=== PATIENT | male | born 1960 | race Caucasian/White ===

== ENCOUNTER 2016-12-11 19:19 | Emergency (ER) | payer BC, OTHER ==
--- NOTE | 2016-12-11 19:45 | ERPHSYRPT ---
- History of Present Illness Time Seen by Provider: 12/11/16 19:32 Historian: patient Exam Limitations: no limitations Patient Subjective Stated Complaint: PT REPORTS CHEST PAIN FOR ONE WEEK. STATES TODAY APPROX 1 HR SHUTTLE THREADER THE PAIN BECAME SEVERE AND SHARP AND RADIATED FROM THE CENTER OF HIS CHEST UP TO HIS JAW. REPORTS HX OF OR. Triage Nursing Assessment: PT IS AOX3, AMBULATORY TO COT WITH NO DIFFICULTIES, SKIN IS PWD, RESPS ARE EASY AND NONLABORED. DENIES COUGH. PT DENIES SOB OR DIAPHORESIS. RADIAL PULSES STRONG AND REGULAR. Physician History: The patient is a 56-year-old male who comes in complaining of chest pain for almost 2 weeks. He denies shortness of breath, nausea, or sweating. The pain is gone when he wakes up every morning but then begins to show up later in the morning and last all day. Today about one hour ago the pain intensified and is described as sharp and pinpoint. An hour ago the pain spread across his chest from left to right and some into his jaw. The pain now is similar to what it had been for almost 2 weeks. The pain is simply pinpoint in nature and sharp. He rates it a 3 out of 10. His past medical history significant for OR, CABG, hypertension, and cholecystectomy. He takes a full size aspirin daily which she did take today. Timing/Duration: week(s) (2) Activities at Onset: none Quality: sharpness Location: central Chest Pain Radiation: jaw Severity of Pain-Max: moderate Severity of Pain-Current: mild Modifying Factors: Improves With: nothing Associated Symptoms: denies symptoms, No nausea, No vomiting, No heartburn, No shortness of breath, No cough, No syncope, No dizziness Prior Chest Pain/Cardiac Workup: angina, cardiac cath, heart attack Nitro Today/Relief: no nitro taken today Aspirin Treatment Today: 325 mg x 1 Allergies/Adverse Reactions: No Known Drug Allergies Allergy (Unverified 11/25/14 17:15) Home Medications: Aspirin 81 gm Chew [Baby Aspirin 81 mg Chew] 81 mg PO DAILY 11/25/14 [ History] Lisinopril [Zestril] 0 mg PO DAILY 11/25/14 [History] Metoprolol Succinate 0 mg PO DAILY 11/25/14 [History] Hx Tetanus, Diphtheria Vaccination/Date Given: No Hx Influenza Vaccination/Date Given: No Hx Pneumococcal Vaccination/Date Given: No Immunizations Up to Date: Yes - Review of Systems Constitutional: No Fever, No Chills Eyes: No Symptoms Ears, Nose, & Throat: No Symptoms Respiratory: No Cough, No Dyspnea Cardiac: Chest Pain Abdominal/Gastrointestinal: No Abdominal Pain, No Nausea, No Vomiting, No Diarrhea Genitourinary Symptoms: No Dysuria Musculoskeletal: No Back Pain, No Neck Pain Skin: No Rash Neurological: No Dizziness, No Focal Weakness, No Sensory Changes Psychological: No Symptoms Endocrine: No Symptoms Hematologic/Lymphatic: No Symptoms Immunological/Allergic: No Symptoms All Other Systems: Reviewed and Negative - Past Medical History Pertinent Past Medical History: Yes Cardiac History: Coronary Artery Disease, Myocardial Infarction ([place]) GI Medical History: Gallbladder Disease - Past Surgical History Past Surgical History: Yes Cardiac: CABG Gastrointestinal: Cholecystectomy Musculoskeletal: Orthopedic Surgery - Social History Smoking Status: Current every day smoker How long have you smoked: 44 Exposure to second hand smoke: No Drug Use: none Patient Lives Alone: No - Nursing Vital Signs Pulse Rate: 86 Respiratory Rate: 20 Pain Intensity: 3 - Physical Exam General Appearance: no apparent distress, alert Eye Exam: PERRL/EOMI, eyes nml inspection Ears, Nose, Throat Exam: normal ENT inspection, moist mucous membranes Neck Exam: normal inspection, non-tender, supple, full range of motion Respiratory Exam: normal breath sounds, lungs clear, No respiratory distress Cardiovascular Exam: regular rate/rhythm, normal heart sounds Gastrointestinal/Abdomen Exam: soft, No tenderness, No mass Rectal Exam: not done Back Exam: normal inspection, No CVA tenderness, No vertebral tenderness Extremity Exam: normal inspection, normal range of motion Neurologic Exam: alert Skin Exam: normal color, warm, dry SpO2 Interpretation: normal SpO2: 96 Oxygen Delivery: Room Air - Course EKG Interpreted by Me: RATE, NORMAL AXIS, NORMAL INTERVALS, NORMAL QRS, NORMAL ST-T, Other (no change comp to EKG 11/25/14.) - Radiology Exams Chest X-ray Interpretation: Interpreted by me, Negative (COPD and CABG. No acute. Comp AP CXR 11/25/14.) Ordered Tests: Active Orders 24 hr Category Date Time Status Clinical Data Research STAT Care 12/11/16 19:49 Active EKG-ER Only STAT Care 12/11/16 19:36 Active IV Insertion STAT Care 12/11/16 19:36 Active CHEST 2 VIEWS (PA AND LAT) Stat Exams 12/11/16 19:49 Taken CBC W DIFF Stat Lab 12/11/16 19:45 Completed CMP Stat Lab 12/11/16 19:45 Completed NT PRO BNP Stat Lab 12/11/16 19:45 Completed TROPONIN Q3H Lab 12/11/16 19:45 Completed TROPONIN Q3H Lab 12/11/16 23:00 Ordered TROPONIN Q3H Lab 12/12/16 02:00 Ordered TROPONIN Q3H Lab 12/12/16 05:00 Ordered TROPONIN Q3H Lab 12/12/16 08:00 Ordered Medication Summary Discontinued Medications Generic Name Dose Route Start Last Admin Trade Name Freq PRN Reason Stop Dose Admin Al Hydrox/Mg Hydrox/Simethicone Confirm 12/11/16 19:56 Maalox Es 30 Ml Unit Dose Administered 12/11/16 19:57 Dose 30 ml .ROUTE .STK-MED ONE Belladonna Alkaloids/Phenobarbital 60 ml 12/11/16 19:50 12/11/16 20:07 Gi Cocktail 60ml (Belladonn/Phenobarb/Lidoc* PO 12/11/16 19:51 60 ml STAT ONE Administration Belladonna Alkaloids/Phenobarbital Confirm 12/11/16 19:57 Donnatol Liquid Administered 12/11/16 19:58 Dose 64.8 mg .ROUTE .STK-MED ONE Ketorolac Tromethamine 30 mg 12/11/16 19:51 12/11/16 20:06 Toradol 30 Mg Injection IV 12/11/16 19:52 30 mg STAT ONE Administration Ketorolac Tromethamine Confirm 12/11/16 19:55 Toradol 30 Mg Injection Administered 12/11/16 19:56 Dose 30 mg .ROUTE .STK-MED ONE Lidocaine HCl Confirm 12/11/16 19:56 Xylocaine Hcl Viscous * Administered 12/11/16 19:57 Dose 20 ml .ROUTE .STK-MED ONE Lab/Rad Data: Laboratory Result Diagrams 12/11/16 19:45 12/11/16 19:45 Laboratory Results 12/11/16 12/11/16 12/11/16 Range/Units 19:45 19:45 19:45 WBC 10.1 (4.0-10.5) K/mm3 RBC 5.23 (4.1-5.6) M/mm3 Hgb 15.9 (12.5-18.0) gm/dl Hct 47.2 (42-50) % MCV 90.2 (78-100) fl MCH 30.4 (26-32) pg MCHC 33.7 (32-36) g/dl RDW 14.3 H (11.5-14.0) % Plt Count 222 (150-450) K/mm3 MPV 10.1 H (6-9.5) fl Gran % 64.7 (36.0-66.0) % Lymphocytes % 23.3 L (24.0-44.0) % Monocytes % 9.8 (0.0-12.0) % Eosinophils % 2.0 (0.00-5.0) % Basophils % 0.2 (0.0-0.4) % Basophils # 0.02 (0-0.4) Sodium 145 (136-145) mEq/L Potassium 3.9 (3.5-5.1) mEq/L Chloride 108 H (98-107) mEq/L Carbon Dioxide 25.2 (21-32) mEq/L Anion Gap 15.8 H (5-15) MEQ/L BUN 13 (9-20) mg/dL Creatinine 1.11 (0.55-1.30) mg/dl Estimated GFR > 60 ML/MIN Glucose 130 H (70-110) MG/DL Calcium 8.8 (8.5-10.1) mg/dL Total Bilirubin 0.4 (0.2-1.0) mg/dL AST 21 (15-37) U/L ALT 28 (12-78) U/L Alkaline Phosphatase 76 (46-116) U/L Troponin I < 0.017 (0.000-0.056) ng/ml NT-Pro-B Natriuret Pep 25 (0-125) pg/ml Serum Total Protein 7.5 (6.4-8.2) gm/dL Albumin 3.8 (3.4-5.0) g/dL - Progress Progress: improved Air Movement: good Progress Note: 12/11/16 20:37 After a GI cocktail and Toradol 30 mg IV, the patient is now pain free and wishes to go home. Blood Culture(s) Obtained: No Antibiotics given: No Counseled pt/family regarding: lab results, diagnosis, need for follow-up, rad results - Departure Time of Disposition: 20:37 Departure Disposition: Home Clinical Impression: Non-cardiac chest pain, Chest pain Condition: Stable Critical Care Time: No Additional Instructions: You came to the emergency room with noncardiac chest pain. You were treated with a GI cocktail and Toradol. Please follow-up with your doctor in 1-2 days.
[2016-12-11] MEDS ORDERED: GI COCKTAIL 60ML (Belladonn/Phenobarb/Lidoc PO ONE (19:50)
[2016-12-11] MEDS ORDERED: TORAdol 30 mg Injection IV ONE (19:51)
[2016-12-11] MEDS ORDERED: TORAdol 30 mg Injection ONE (19:55)
[2016-12-11] MEDS ORDERED: XYLOCAINE HCl Viscous ONE (19:56)
[2016-12-11] MEDS ORDERED: MAALOX ES 30 ML UNIT DOSE ONE (19:56)
[2016-12-11 19:57] LABS: BASOPHIL % 0.2 % (0.0-0.4); Granulocytes % 64.7 % (36.0-66.0); Lymphocytes % 23.3 % (24.0-44.0); Mean Cell Volume 90.2 fl (78-100); Mean Corpuscular Hemoglobin 30.4 pg (26-32); Mean Platelet Volume 10.1 fl (6-9.5); Monocytes % 9.8 % (0.0-12.0); Platelet Count 222 K/mm3 (150-450); Red Blood Count 5.23 M/mm3 (4.1-5.6); Red Cell Distribution Width 14.3 % (11.5-14.0); White Blood Count 10.1 K/mm3 (4.0-10.5)
[2016-12-11] MEDS ORDERED: Donnatol Liquid ONE (19:57)
[2016-12-11 20:12] LABS: ALBUMIN 3.8 g/dL (3.4-5.0); ALKALINE PHOSPHATASE 76 U/L (46-116); ANION GAP 15.8 MEQ/L (5-15); BILIRUBIN,TOTAL 0.4 mg/dL (0.2-1.0); BLOOD UREA NITROGEN 13 mg/dL (9-20); CHLORIDE 108 mEq/L (98-107); Carbon Dioxide 25.2 mEq/L (21-32); Glucose 130 MG/DL (70-110); Potassium 3.9 mEq/L (3.5-5.1); SGOT/AST 21 U/L (15-37); SGPT/ALT 28 U/L (12-78); SODIUM 145 mEq/L (136-145); Total Protein 7.5 gm/dL (6.4-8.2)
[2016-12-11 20:39] VITALS: O2SAT 96
[2016-12-11 21:00] VITALS: BP 124/78; PULSE 73
--- NOTE | 2016-12-12 08:36 | XRAY ---
Indication: Chest pain. Comparison: November 25, 2014. Portable chest remains clear. Heart is not enlarged and again demonstrates previous CABG surgery. Vascularity normal. Bony thorax intact again with mild osteopenia and degenerative changes. Impression: Stable nonacute chest.
== END 2016-12-11 21:00 | disposition home or self-care (01) ==
LOC: ED 19:19
DX: R07.89 Other chest pain (principal)
CPT/HCPCS: 36000; 36415; 71020; 80053; 83880; 84484; 85025; 93005; 93041; 96374; 99284; J1885; A9270-GY

== ENCOUNTER 2021-10-08 18:50 | Observation (INO) | payer BC ==
[2021-10-08 19:35] LABS: Absolute Neutrophil Ct (ANC) 7.85 (1.4-6.9); Basophil (Absolute #) 0.03 (0-0.4); Eosinophil % 1.3 % (0.00-5.0); Eosinophil (Absolute #) 0.14 (0-0.5); Hematocrit 48.3 % (42-50); Hemoglobin 16.1 gm/dl (12.5-18.0); Lymphocyte (Absolute #) 2.17 (1.0-4.6); Lymphocytes % 19.7 % (24.0-44.0); Mean Cell Volume 91.7 fl (78-100); Mean Corpuscular Hemoglobin 30.6 pg (26-32); Mean Corpuscular Hgb Concent. 33.3 g/dl (32-36); Mean Platelet Volume 10.1 fl (7.5-11.0); Monocyte (Absolute #) 0.84 (0.0-1.3); Monocytes % 7.6 % (0.0-12.0); Neutrophil % 71.1 % (36.0-66.0); Platelet Count 230 K/mm3 (150-450); Red Blood Count 5.27 M/mm3 (4.1-5.6); Red Cell Distribution Width 14.1 % (11.5-14.0)
[2021-10-08 19:45] LABS: ALBUMIN 4.5 g/dL (3.5-5.0); ALKALINE PHOSPHATASE 95 U/L (38-126); ANION GAP 16.1 MEQ/L (5-15); BLOOD UREA NITROGEN 15 mg/dL (9-20); CHLORIDE 104 mmol/L (98-107); Calcium 9.7 mg/dL (8.4-10.2); Carbon Dioxide 23 mmol/L (22-30); Creatinine 1 1.18 mg/dL (0.66-1.25); EST GLOMERULAR FILTRATION RATE > 60.0 ML/MIN; Glucose 105 mg/dL (74-106); SGOT/AST 25 U/L (17-59); SGPT/ALT 25 U/L (0-50); SODIUM 139 mmol/L (137-145); Total Protein 7.6 g/dL (6.3-8.2)
[2021-10-08] MEDS ORDERED: BABY ASPIRIN 81 MG CHEW PO ONE (21:26)
[2021-10-08] MEDS ORDERED: NITRO-BID 2% UD PACKETS TOP ONE (21:26)
--- NOTE | 2021-10-08 21:26 | ERPHSYRPT ---
- History of Present Illness Time Seen by Provider: 10/08/21 19:00 Source: patient Exam Limitations: no limitations Patient Subjective Stated Complaint: Chest pain Triage Nursing Assessment: Patient ambulated back to ED and transferred self to bed. Patient A+O X3. Patient's skin pink, warm and dry. Patient complains of chest pain that goes through shoulder blades and into left side of neck 5/10. Patient stated the pain started yesterday, but went away. Patient states around 1600 the pain came back while he was at rest. Lungs clear a/p torie. Heart tones audible. Physician History: Patient is a 61-year-old male presents to our ED with complaints of chest pain that radiates through her chest to his back. Pain radiates to the area between his shoulder blades and up his left neck. Pain rated 5 out of 10. Patient e xperienced the same pain yesterday but the pain spontaneously resolved. Patient states the pain recurred today approximately 4 PM while he was resting. Pain is now constant. Pain is mild to moderate in intensity. No trauma. No fever. No nausea vomiting or diaphoresis. Patient denies a history of the same. He voices no other complaints or concerns at this time. Timing/Duration: yesterday Severity: moderate Modifying Factors: Improves With: nothing Allergies/Adverse Reactions: No Known Drug Allergies Allergy (Verified 10/08/21 18:53) Home Medications: Aspirin 81 gm Chew [Baby Aspirin 81 mg Chew] 325 mg PO DAILY 11/25/14 [History] Metoprolol Succinate 0 mg PO DAILY 11/25/14 [History] lisinopriL [Zestril] 0 mg PO DAILY 11/25/14 [History] Hx Tetanus, Diphtheria Vaccination/Date Given: No Hx Influenza Vaccination/Date Given: No Hx Pneumococcal Vaccination/Date Given: No Immunizations Up to Date: Yes Travel Risk - International Travel Have you traveled outside of the country in past 3 weeks: No - Coronavirus Screening Are you exhibiting any of the following symptoms?: No Close contact with a COVID-19 positive Pt in past 14-21 Days: No - Vaccine Status Have you recieved a Covid-19 vaccination: Yes 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 - Vaccination Dates Date of 2cond Vaccination (if applicable): June 2021 - Past Medical History Pertinent Past Medical History: Yes Cardiac History: Coronary Artery Disease, Myocardial Infarction ([place]) GI Medical History: Gallbladder Disease - Past Surgical History Past Surgical History: Yes Cardiac: CABG Gastrointestinal: Cholecystectomy Musculoskeletal: Orthopedic Surgery - Social History Smoking Status: Current every day smoker How long have you smoked: years Exposure to second hand smoke: No Drug Use: none Patient Lives Alone: Yes - Nursing Vital Signs Nursing Vital Signs: Initial Vital Signs Temperature 95.8 F 10/08/21 18:55 Pulse Rate 88 10/08/21 18:55 Respiratory Rate 18 10/08/21 18:55 Blood Pressure 158/88 10/08/21 18:55 O2 Sat by Pulse Oximetry 99 10/08/21 18:55 Pain Scale Pain Intensity 0 - Physical Exam SpO2: 94 Ordered Tests: Active Orders 24 hr Category Date Time Status Local Company Truck Driver STAT Care 10/08/21 19:03 Active EKG-ER Only STAT Care 10/08/21 19:03 Active IV Insertion STAT Care 10/08/21 19:03 Active Pulse Oximetry (ED) STAT Care 10/08/21 19:03 Active CHEST 1 VIEW (PORTABLE) Stat Exams 10/08/21 19:03 Taken CBC W DIFF Stat Lab 10/08/21 19:20 Completed CMP Stat Lab 10/08/21 19:03 Completed TROPONIN Q3H Lab 10/08/21 19:15 Completed TROPONIN Q3H Lab 10/08/21 22:15 Ordered TROPONIN Q3H Lab 10/09/21 01:15 Ordered TROPONIN Q3H Lab 10/09/21 04:15 Ordered TROPONIN Q3H Lab 10/09/21 07:15 Ordered Lab/Rad Data: Laboratory Result Diagrams 10/08/21 19:20 10/08/21 19:03 Laboratory Results 10/08/21 10/08/21 10/08/21 Range/Units 19:20 19:15 19:03 WBC 11.0 H (4.0-10.5) K/mm3 RBC 5.27 (4.1-5.6) M/mm3 Hgb 16.1 (12.5-18.0) gm/dl Hct 48.3 (42-50) % MCV 91.7 (78-100) fl MCH 30.6 (26-32) pg MCHC 33.3 (32-36) g/dl RDW 14.1 H (11.5-14.0) % Plt Count 230 (150-450) K/mm3 MPV 10.1 (7.5-11.0) fl Gran % 71.1 H (36.0-66.0) % Eos # (Auto) 0.14 (0-0.5) Absolute Lymphs (auto) 2.17 (1.0-4.6) Absolute Monos (auto) 0.84 (0.0-1.3) Lymphocytes % 19.7 L (24.0-44.0) % Monocytes % 7.6 (0.0-12.0) % Eosinophils % 1.3 (0.00-5.0) % Basophils % 0.3 (0.0-0.4) % Absolute Granulocytes 7.85 H (1.4-6.9) Basophils # 0.03 (0-0.4) Sodium 139 (137-145) mmol/L Potassium 4.0 (3.5-5.1) mmol/L Chloride 104 (98-107) mmol/L Carbon Dioxide 23 (22-30) mmol/L Anion Gap 16.1 H (5-15) MEQ/L BUN 15 (9-20) mg/dL Creatinine 1.18 (0.66-1.25) mg/dL Estimated GFR > 60.0 ML/MIN Glucose 105 (74-106) mg/dL Calcium 9.7 (8.4-10.2) mg/dL Total Bilirubin 0.70 (0.2-1.3) mg/dL AST 25 (17-59) U/L ALT 25 (0-50) U/L Alkaline Phosphatase 95 (38-126) U/L Troponin I < 0.012 (0.000-0.034) ng/mL Serum Total Protein 7.6 (6.3-8.2) g/dL Albumin 4.5 (3.5-5.0) g/dL - Departure Referrals: GENARO FAULKNER MD [Primary Care Provider] - Follow up/PCP as directed
--- NOTE | 2021-10-08 21:32 | ERPHSYRPT ---
- History of Present Illness Time Seen by Provider: 10/08/21 19:00 Historian: patient Patient Subjective Stated Complaint: Chest pain Triage Nursing Assessment: Patient ambulated back to ED and transferred self to bed. Patient A+O X3. Patient's skin pink, warm and dry. Patient complains of chest pain that goes through shoulder blades and into left side of neck 5/10. Patient stated the pain started yesterday, but went away. Patient states around 1600 the pain came back while he was at rest. Lungs clear a/p torie. Heart tones audible. Physician History: Patient is a 61-year-old male presents to our ED with complaints of chest pain. Chest pain is substernal but radiates to the area between his shoulder blades and up his left neck. Symptoms started yesterday but spontaneously resolved. Patient did not seek medical care. Pain recurred today at approximately 4 PM while patient was at rest. Pain rated 5 out of 10. Patient denies a history of the same. Symptoms are mild to moderate in intensity. No specific worsening improving factors. No associated nausea vomiting or diaphoresis. Patient voices no other complaints or concerns at this time. Timing/Duration: yesterday Activities at Onset: none Quality: aching Location: substernal Chest Pain Radiation: back Severity of Pain-Max: moderate Severity of Pain-Current: mild Modifying Factors: Improves With: nothing Associated Symptoms: denies symptoms Prior Chest Pain/Cardiac Workup: no prior chest pain Nitro Today/Relief: no nitro taken today Aspirin Treatment Today: 325 mg x 1 Allergies/Adverse Reactions: No Known Drug Allergies Allergy (Verified 10/08/21 18:53) Home Medications: Aspirin 81 gm Chew [Baby Aspirin 81 mg Chew] 325 mg PO DAILY 11/25/14 [History] Metoprolol Succinate 0 mg PO DAILY 11/25/14 [History] lisinopriL [Zestril] 0 mg PO DAILY 11/25/14 [History] Hx Tetanus, Diphtheria Vaccination/Date Given: No Hx Influenza Vaccination/Date Given: No Hx Pneumococcal Vaccination/Date Given: No Immunizations Up to Date: Yes Travel Risk - International Travel Have you traveled outside of the country in past 3 weeks: No - Coronavirus Screening Are you exhibiting any of the following symptoms?: No Close contact with a COVID-19 positive Pt in past 14-21 Days: No - Vaccine Status Have you recieved a Covid-19 vaccination: Yes Auto Body Technician: Moderna - Vaccination Dates Date of 2cond Vaccination (if applicable): June 2021 - Review of Systems Constitutional: No Symptoms, No Fever, No Chills Eyes: No Symptoms Ears, Nose, & Throat: No Symptoms Respiratory: No Symptoms, No Cough, No Dyspnea Cardiac: No Symptoms, No Chest Pain, No Edema, No Syncope Abdominal/Gastrointestinal: No Symptoms, No Abdominal Pain, No Nausea, No Vomiting, No Diarrhea Genitourinary Symptoms: No Symptoms, No Dysuria Musculoskeletal: No Symptoms, No Back Pain, No Neck Pain Skin: No Symptoms, No Rash Neurological: No Symptoms, No Dizziness, No Focal Weakness, No Sensory Changes Psychological: No Symptoms Endocrine: No Symptoms Hematologic/Lymphatic: No Symptoms Immunological/Allergic: No Symptoms All Other Systems: Reviewed and Negative - Past Medical History Pertinent Past Medical History: Yes Cardiac History: Coronary Artery Disease, Myocardial Infarction ([place]) GI Medical History: Gallbladder Disease - Past Surgical History Past Surgical History: Yes Cardiac: CABG Gastrointestinal: Cholecystectomy Musculoskeletal: Orthopedic Surgery - Social History Smoking Status: Current every day smoker How long have you smoked: years Exposure to second hand smoke: No Drug Use: none Patient Lives Alone: Yes - Nursing Vital Signs Nursing Vital Signs: Initial Vital Signs Temperature 95.8 F 10/08/21 18:55 Pulse Rate 88 10/08/21 18:55 Respiratory Rate 18 10/08/21 18:55 Blood Pressure 158/88 10/08/21 18:55 O2 Sat by Pulse Oximetry 99 10/08/21 18:55 Pain Scale Pain Intensity 0 - Physical Exam General Appearance: no apparent distress, alert Eye Exam: PERRL/EOMI, eyes nml inspection Ears, Nose, Throat Exam: normal ENT inspection, moist mucous membranes Neck Exam: normal inspection, non-tender, supple, full range of motion Respiratory Exam: normal breath sounds, lungs clear, airway intact, No respiratory distress Cardiovascular Exam: regular rate/rhythm, normal heart sounds, normal peripheral pulses Gastrointestinal/Abdomen Exam: soft, No tenderness, No mass Back Exam: normal inspection, No CVA tenderness, No vertebral tenderness Extremity Exam: normal inspection, normal range of motion Neurologic Exam: alert, oriented x 3, cooperative, normal mood/affect, sensation nml, No motor deficits Skin Exam: normal color, warm, dry Lymphatic Exam: No adenopathy SpO2 Interpretation: normal SpO2: 94 O2 Delivery: Room Air - Course Nursing assessment & vital signs reviewed: Yes EKG Interpreted by Me: RATE (86), Sinus Rhythm, NORMAL AXIS, NORMAL INTERVALS - Radiology Exams Chest X-ray Interpretation: Interpreted by me (Clear lung gomez, no cardiomegaly, previous CABG, intact bony thorax.) Ordered Tests: Active Orders 24 hr Category Date Time Status Warehouse Team Leader STAT Care 10/08/21 19:03 Active EKG-ER Only STAT Care 10/08/21 19:03 Active IV Insertion STAT Care 10/08/21 19:03 Active Pulse Oximetry (ED) STAT Care 10/08/21 19:03 Active CHEST 1 VIEW (PORTABLE) Stat Exams 10/08/21 19:03 Taken CBC W DIFF Stat Lab 10/08/21 19:20 Completed CMP Stat Lab 10/08/21 19:03 Completed TROPONIN Q3H Lab 10/08/21 19:15 Completed TROPONIN Q3H Lab 10/08/21 22:00 Completed TROPONIN Q3H Lab 10/09/21 01:15 Ordered TROPONIN Q3H Lab 10/09/21 04:15 Ordered TROPONIN Q3H Lab 10/09/21 07:15 Ordered Transfer Order Routine Transfer 10/09/21 Ordered Medication Summary Discontinued Medications Generic Name Dose Route Start Last Admin Trade Name Denita PRN Reason Stop Dose Admin Aspirin 324 mg 10/08/21 21:26 10/08/21 21:33 Aspirin 81 Mg Tab.Chew PO 10/08/21 21:27 Not Given STAT ONE Nitroglycerin 1 gm 10/08/21 21:26 10/08/21 21:34 Nitroglycerin 1 Gm Packet TOP 10/08/21 21:27 1 gm STAT ONE Administration Nitroglycerin Confirm 10/08/21 21:33 Nitroglycerin 1 Gm Packet Administered 10/08/21 21:34 Dose 1 gm .ROUTE .STK-MED ONE Lab/Rad Data: Laboratory Result Diagrams 10/08/21 19:20 10/08/21 19:03 Laboratory Results 10/08/21 10/08/21 10/08/21 Range/Units 23:18 22:00 19:20 WBC 11.0 H (4.0-10.5) K/mm3 RBC 5.27 (4.1-5.6) M/mm3 Hgb 16.1 (12.5-18.0) gm/dl Hct 48.3 (42-50) % MCV 91.7 (78-100) fl MCH 30.6 (26-32) pg MCHC 33.3 (32-36) g/dl RDW 14.1 H (11.5-14.0) % Plt Count 230 (150-450) K/mm3 MPV 10.1 (7.5-11.0) fl Gran % 71.1 H (36.0-66.0) % Eos # (Auto) 0.14 (0-0.5) Absolute Lymphs (auto) 2.17 (1.0-4.6) Absolute Monos (auto) 0.84 (0.0-1.3) Lymphocytes % 19.7 L (24.0-44.0) % Monocytes % 7.6 (0.0-12.0) % Eosinophils % 1.3 (0.00-5.0) % Basophils % 0.3 (0.0-0.4) % Absolute Granulocytes 7.85 H (1.4-6.9) Basophils # 0.03 (0-0.4) Sodium (137-145) mmol/L Potassium (3.5-5.1) mmol/L Chloride (98-107) mmol/L Carbon Dioxide (22-30) mmol/L Anion Gap (5-15) MEQ/L BUN (9-20) mg/dL Creatinine (0.66-1.25) mg/dL Estimated GFR ML/MIN Glucose (74-106) mg/dL Calcium (8.4-10.2) mg/dL Total Bilirubin (0.2-1.3) mg/dL AST (17-59) U/L ALT (0-50) U/L Alkaline Phosphatase (38-126) U/L Troponin I < 0.012 (0.000-0.034) ng/mL Serum Total Protein (6.3-8.2) g/dL Albumin (3.5-5.0) g/dL Influenza Type A Ag NEGATIVE (NEGATIVE) Influenza Type B Ag NEGATIVE (NEGATIVE) RSV (PCR) NEGATIVE (Negative) SARS-CoV-2 (PCR) NEGATIVE (NEGATIVE) 10/08/21 10/08/21 Range/Units 19:15 19:03 WBC (4.0-10.5) K/mm3 RBC (4.1-5.6) M/mm3 Hgb (12.5-18.0) gm/dl Hct (42-50) % MCV (78-100) fl MCH (26-32) pg MCHC (32-36) g/dl RDW (11.5-14.0) % Plt Count (150-450) K/mm3 MPV (7.5-11.0) fl Gran % (36.0-66.0) % Eos # (Auto) (0-0.5) Absolute Lymphs (auto) (1.0-4.6) Absolute Monos (auto) (0.0-1.3) Lymphocytes % (24.0-44.0) % Monocytes % (0.0-12.0) % Eosinophils % (0.00-5.0) % Basophils % (0.0-0.4) % Absolute Granulocytes (1.4-6.9) Basophils # (0-0.4) Sodium 139 (137-145) mmol/L Potassium 4.0 (3.5-5.1) mmol/L Chloride 104 (98-107) mmol/L Carbon Dioxide 23 (22-30) mmol/L Anion Gap 16.1 H (5-15) MEQ/L BUN 15 (9-20) mg/dL Creatinine 1.18 (0.66-1.25) mg/dL Estimated GFR > 60.0 ML/MIN Glucose 105 (74-106) mg/dL Calcium 9.7 (8.4-10.2) mg/dL Total Bilirubin 0.70 (0.2-1.3) mg/dL AST 25 (17-59) U/L ALT 25 (0-50) U/L Alkaline Phosphatase 95 (38-126) U/L Troponin I < 0.012 (0.000-0.034) ng/mL Serum Total Protein 7.6 (6.3-8.2) g/dL Albumin 4.5 (3.5-5.0) g/dL Influenza Type A Ag (NEGATIVE) Influenza Type B Ag (NEGATIVE) RSV (PCR) (Negative) SARS-CoV-2 (PCR) (NEGATIVE) - Progress Progress: improved Air Movement: good Progress Note: Initial troponin negative. 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 Patient has been symptom-free. Patient get stress test yearly. His last stress test was in January of last year. Patient will require another stress test during this admission. I advised admission and patient agreed. COVID test pending. 10/08/21 21:39 COVID test negative. Case discussed with who accepts admission to observation. Plan of care discussed with patient. He agrees to admission at [facility] for further evaluation and treatment. Patient voices no other complaints or concerns at this time. Portions of this note were created with voice recognition technology. There may be grammatical, spelling, punctuation or sound alike errors 10/09/21 00:10 Blood Culture(s) Obtained: No Antibiotics given: No Discussed with Dr.: Robert Will see patient in: hospital (observation) Counseled pt/family regarding: lab results, diagnosis, rad results - Departure Departure Disposition: Observation Clinical Impression: ACS (acute coronary syndrome) Condition: Stable Critical Care Time: No Referrals: GENARO FAULKNER MD [Primary Care Provider] - Follow up/PCP as directed
[2021-10-08] MEDS ORDERED: NITRO-BID 2% UD PACKETS ONE (21:33)
[2021-10-08 23:59] LABS: INFLUENZA A NEGATIVE (NEGATIVE); INFLUENZA B NEGATIVE (NEGATIVE); RESPIRATORY SYNCTIAL VIRUS NEGATIVE (Negative); SARS-CoV-2 Xpert Express NEGATIVE (NEGATIVE)
[2021-10-09] MEDS ORDERED: TYLENOL 325 MG PO PRN (00:46)
[2021-10-09] MEDS ORDERED: Zofran 4 MG/2 ML VIAL IV PRN (00:46)
[2021-10-09] MEDS ORDERED: MILK OF MAGNESIA 30 ML PO PRN (00:46)
[2021-10-09] MEDS ORDERED: MAALOX ES 30 ML UNIT DOSE PO PRN (00:46)
[2021-10-09] MEDS ORDERED: Senokot-S Tablet PO PRN (00:46)
[2021-10-09 05:57] VITALS: O2SAT 94
[2021-10-09 07:57] VITALS: BP 107/68; PULSE 69
--- NOTE | 2021-10-09 08:42 | XRAY ---
Indication: Chest pain. Comparison: December 11, 2016. Portable apical lordotic chest less inflated and clear. Heart not enlarged again with CABG. Bony thorax intact again with mild osteopenia and degenerative changes. No new/acute findings. Impression: Continued nonacute chest with chronic features.
[2021-10-09] MEDS ORDERED: NON-FORMULARY ITEM (Lisinopril [Zestril] 2.5 MG Tablet) PO SCH (10:00)
[2021-10-09] MEDS ORDERED: Ecotrin 325 MG PO SCH (10:00)
[2021-10-09] MEDS ORDERED: Toprol-Xl 25MG Tablets PO SCH (10:00)
[2021-10-09] MEDS ORDERED: Zestril 5 MG PO SCH (10:00)
--- NOTE | 2021-10-09 12:42 | PCM.SSS ---
History of Present Illness - Chief Complaint Chief Complaint: chest pain for 1 day History of Present Illness: is a 61 year old male.presents to our ED with complaints of chest pain. Chest pain is substernal but radiates to the area between his shoulder blades and up his left neck. Symptoms started yesterday but spontaneously resolved. Patient did not seek medical care. Pain recurred today at approximately 4 PM while patient was at rest. Pain rated 5 out of 10. Patient denies a history of the same. Symptoms are mild to moderate in intensity. No specific worsening improving factors. No associated nausea vomiting or diaphoresis. Patient voices no other complaints or concerns at this time. - Review of Systems Constitutional: No Fever, No Chills Eyes: No Symptoms Ears, Nose, & Throat: No Symptoms Respiratory: No Cough, No Short Of Breath Cardiac: Chest Pain, No Edema, No Syncope Abdominal/Gastrointestinal: No Abdominal Pain, No Nausea, No Vomiting, No Diarrhea Genitourinary Symptoms: No Dysuria Musculoskeletal: No Back Pain, No Neck Pain Skin: No Rash Neurological: No Dizziness, No Focal Weakness, No Sensory Changes Psychological: No Symptoms Endocrine: No Symptoms Hematologic/Lymphatic: No Symptoms Immunological/Allergic: No Symptoms Medications & Allergies Home Medications: Home Medication List Metoprolol Succinate 25 mg PO DAILY 11/25/14 [History Confirmed 10/09/21] lisinopriL [Zestril] 2.5 mg PO DAILY 11/25/14 [History Confirmed 10/09/21] Aspirin EC 325 mg [Ecotrin 325 MG] 325 mg PO DAILY 10/09/21 [History Confirmed 10/09/21] Atorvastatin Calcium [Lipitor] 20 mg PO HS 10/09/21 [History Confirmed 10/09/21] Allergies/Adverse Reactions: Allergies Allergy/AdvReac Type Severity Reaction Status Date / Time No Known Drug Allergies Allergy Verified 10/09/21 01:02 - Past Medical History Past Medical History: Yes Neurological History: No Pertinent History ENT History: No Pertinent History Cardiac History: Coronary Artery Disease, Myocardial Infarction (ND) Respiratory History: No Pertinent History Endocrine Medical History: No Pertinent History Musculoskelatal History: No Pertinent History GI Medical History: Gallbladder Disease History: No Pertinent History Pyscho-Social History: No Pertinent History Male Reproductive Disorders: No Pertinent History - Past Surgical History Past Surgical History: Yes Neuro Surgical History: No Pertinent History Cardiac History: CABG Respiratory Surgery: No Pertinent History GI Surgical History: Cholecystectomy Genitourinary Surgical Hx: No Pertinent History Musculskeletal Surgical Hx: Orthopedic Surgery Male Surgical History: No Pertinent History - Social History Smoking Status: Current every day smoker How long have you smoked: 50 YEARS Exposure to second hand smoke: No Alcohol: None Drug Use: none - Physical Exam Vital Signs: Vital Signs - 24 hr Temp Pulse Resp BP Pulse Ox 10/09/21 07:55 96.2 F 69 17 107/68 94 L 10/09/21 05:30 94 L 10/09/21 04:00 97.1 F 71 21 99/59 93 L 10/09/21 00:47 97.9 F 75 15 100/62 94 L 10/09/21 00:19 94 L 10/09/21 00:12 77 18 98/65 93 L 10/08/21 23:00 83 16 103/68 95 10/08/21 22:00 88 18 115/85 97 10/08/21 21:00 85 18 123/81 94 L 10/08/21 20:15 77 16 140/93 95 10/08/21 19:07 96 10/08/21 18:55 95.8 F 88 18 158/88 99 General Appearance: no apparent distress, alert Neurologic Exam: alert, oriented x 3, cooperative, normal mood/affect, nml cerebellar function, nml station & gait, sensation nml, No motor deficits Eye Exam: PERRL/EOMI, eyes nml inspection Ears, Nose, Throat Exam: normal ENT inspection, TMs normal, pharynx normal, moist mucous membranes Neck Exam: normal inspection, non-tender, supple, full range of motion Respiratory Exam: normal breath sounds, lungs clear, No respiratory distress Cardiovascular Exam: regular rate/rhythm, normal heart sounds, normal peripheral pulses Gastrointestinal/Abdomen Exam: soft, normal bowel sounds, No tenderness, No mass Back Exam: normal inspection, normal range of motion, No CVA tenderness, No vertebral tenderness Extremity Exam: normal inspection, normal range of motion, pelvis stable Skin Exam: normal color, warm, dry, No rash Lymphatic Exam: No adenopathy Results - Labs Lab/Micro Results: Lab Results-Last 24 Hours 10/08/21 10/08/21 10/08/21 Range/Units 19:03 19:15 19:20 WBC 11.0 H (4.0-10.5) K/mm3 RBC 5.27 (4.1-5.6) M/mm3 Hgb 16.1 (12.5-18.0) gm/dl Hct 48.3 (42-50) % MCV 91.7 (78-100) fl MCH 30.6 (26-32) pg MCHC 33.3 (32-36) g/dl RDW 14.1 H (11.5-14.0) % Plt Count 230 (150-450) K/mm3 MPV 10.1 (7.5-11.0) fl Gran % 71.1 H (36.0-66.0) % Eos # (Auto) 0.14 (0-0.5) Absolute Lymphs (auto) 2.17 (1.0-4.6) Absolute Monos (auto) 0.84 (0.0-1.3) Lymphocytes % 19.7 L (24.0-44.0) % Monocytes % 7.6 (0.0-12.0) % Eosinophils % 1.3 (0.00-5.0) % Basophils % 0.3 (0.0-0.4) % Absolute Granulocytes 7.85 H (1.4-6.9) Basophils # 0.03 (0-0.4) Sodium 139 (137-145) mmol/L Potassium 4.0 (3.5-5.1) mmol/L Chloride 104 (98-107) mmol/L Carbon Dioxide 23 (22-30) mmol/L Anion Gap 16.1 H (5-15) MEQ/L BUN 15 (9-20) mg/dL Creatinine 1.18 (0.66-1.25) mg/dL Estimated GFR > 60.0 ML/MIN Glucose 105 (74-106) mg/dL Calcium 9.7 (8.4-10.2) mg/dL Total Bilirubin 0.70 (0.2-1.3) mg/dL AST 25 (17-59) U/L ALT 25 (0-50) U/L Alkaline Phosphatase 95 (38-126) U/L Troponin I < 0.012 (0.000-0.034) ng/mL Serum Total Protein 7.6 (6.3-8.2) g/dL Albumin 4.5 (3.5-5.0) g/dL Triglycerides (30-150) mg/dL Cholesterol (50-200) mg/dL LDL Cholesterol (30-100) mg/dL HDL Cholesterol (40-60) mg/dL Heart Disease Risk Ratio Influenza Type A Ag (NEGATIVE) Influenza Type B Ag (NEGATIVE) RSV (PCR) (Negative) SARS-CoV-2 (PCR) (NEGATIVE) 10/08/21 10/08/21 10/09/21 Range/Units 22:00 23:18 01:25 WBC (4.0-10.5) K/mm3 RBC (4.1-5.6) M/mm3 Hgb (12.5-18.0) gm/dl Hct (42-50) % MCV (78-100) fl MCH (26-32) pg MCHC (32-36) g/dl RDW (11.5-14.0) % Plt Count (150-450) K/mm3 MPV (7.5-11.0) fl Gran % (36.0-66.0) % Eos # (Auto) (0-0.5) Absolute Lymphs (auto) (1.0-4.6) Absolute Monos (auto) (0.0-1.3) Lymphocytes % (24.0-44.0) % Monocytes % (0.0-12.0) % Eosinophils % (0.00-5.0) % Basophils % (0.0-0.4) % Absolute Granulocytes (1.4-6.9) Basophils # (0-0.4) Sodium (137-145) mmol/L Potassium (3.5-5.1) mmol/L Chloride (98-107) mmol/L Carbon Dioxide (22-30) mmol/L Anion Gap (5-15) MEQ/L BUN (9-20) mg/dL Creatinine (0.66-1.25) mg/dL Estimated GFR ML/MIN Glucose (74-106) mg/dL Calcium (8.4-10.2) mg/dL Total Bilirubin (0.2-1.3) mg/dL AST (17-59) U/L ALT (0-50) U/L Alkaline Phosphatase (38-126) U/L Troponin I < 0.012 < 0.012 (0.000-0.034) ng/mL Serum Total Protein (6.3-8.2) g/dL Albumin (3.5-5.0) g/dL Triglycerides (30-150) mg/dL Cholesterol (50-200) mg/dL LDL Cholesterol (30-100) mg/dL HDL Cholesterol (40-60) mg/dL Heart Disease Risk Ratio Influenza Type A Ag NEGATIVE (NEGATIVE) Influenza Type B Ag NEGATIVE (NEGATIVE) RSV (PCR) NEGATIVE (Negative) SARS-CoV-2 (PCR) NEGATIVE (NEGATIVE) 10/09/21 10/09/21 10/09/21 Range/Units 04:20 04:20 07:29 WBC (4.0-10.5) K/mm3 RBC (4.1-5.6) M/mm3 Hgb (12.5-18.0) gm/dl Hct (42-50) % MCV (78-100) fl MCH (26-32) pg MCHC (32-36) g/dl RDW (11.5-14.0) % Plt Count (150-450) K/mm3 MPV (7.5-11.0) fl Gran % (36.0-66.0) % Eos # (Auto) (0-0.5) Absolute Lymphs (auto) (1.0-4.6) Absolute Monos (auto) (0.0-1.3) Lymphocytes % (24.0-44.0) % Monocytes % (0.0-12.0) % Eosinophils % (0.00-5.0) % Basophils % (0.0-0.4) % Absolute Granulocytes (1.4-6.9) Basophils # (0-0.4) Sodium (137-145) mmol/L Potassium (3.5-5.1) mmol/L Chloride (98-107) mmol/L Carbon Dioxide (22-30) mmol/L Anion Gap (5-15) MEQ/L BUN (9-20) mg/dL Creatinine (0.66-1.25) mg/dL Estimated GFR ML/MIN Glucose (74-106) mg/dL Calcium (8.4-10.2) mg/dL Total Bilirubin (0.2-1.3) mg/dL AST (17-59) U/L ALT (0-50) U/L Alkaline Phosphatase (38-126) U/L Troponin I < 0.012 < 0.012 (0.000-0.034) ng/mL Serum Total Protein (6.3-8.2) g/dL Albumin (3.5-5.0) g/dL Triglycerides 138 (30-150) mg/dL Cholesterol 136 (50-200) mg/dL LDL Cholesterol 72 (30-100) mg/dL HDL Cholesterol 34 L (40-60) mg/dL Heart Disease Risk Ratio 4.0 Influenza Type A Ag (NEGATIVE) Influenza Type B Ag (NEGATIVE) RSV (PCR) (Negative) SARS-CoV-2 (PCR) (NEGATIVE) - Radiology Impressions Radiology Exams & Impressions: Radiology Procedures Category Date Time Status CHEST 1 VIEW (PORTABLE) Stat Exams 10/08/21 19:03 Completed ECHO W/2D AND DOPPLER [US] Urgent Exams 10/09/21 Taken Assessment/Plan (1) Chest pain Status: Resolved Qualifiers: Ischemic chest pain type: stable angina pectoris Code(s): R07.9 - CHEST PAIN, UNSPECIFIED (2) ACS (acute coronary syndrome) Status: Resolved Code(s): I24.9 - ACUTE ISCHEMIC HEART DISEASE, UNSPECIFIED (3) Hypertension Status: Chronic Qualifiers: Hypertension type: primary hypertension Qualified Code(s): I10 - Essential (primary) hypertension Code(s): I10 - ESSENTIAL (PRIMARY) HYPERTENSION (4) Hyperlipidemia Status: Chronic Qualifiers: Hyperlipidemia type: mixed hyperlipidemia Qualified Code(s): E78.2 - Mixed hyperlipidemia Code(s): E78.5 - HYPERLIPIDEMIA, UNSPECIFIED Hospital Summary - Hospital Course Hospital Course: Chief Complaint Diagnosis chest pain for 1 day Allergies Allergy/AdvReac Type Severity Reaction Status Date / Time No Known Drug Allergies Allergy Verified 10/09/21 01:02 Vital Signs (Last 24 hours) Temp Pulse Resp BP Pulse Ox 10/09/21 07:55 96.2 F 69 17 107/68 94 L 10/09/21 05:30 94 L 10/09/21 04:00 97.1 F 71 21 99/59 93 L 10/09/21 00:47 97.9 F 75 15 100/62 94 L 10/09/21 00:19 94 L 10/09/21 00:12 77 18 98/65 93 L 10/08/21 23:00 83 16 103/68 95 10/08/21 22:00 88 18 115/85 97 10/08/21 21:00 85 18 123/81 94 L 10/08/21 20:15 77 16 140/93 95 10/08/21 19:07 96 10/08/21 18:55 95.8 F 88 18 158/88 99 Home Medications Medication Instructions Recorded Confirmed Last Taken Type Aspirin EC 325 mg [Ecotrin 325 325 mg PO DAILY 10/09/21 10/09/21 10/08/21 History MG] Atorvastatin Calcium [Lipitor] 20 mg PO HS 10/09/21 10/09/21 10/07/21 History Current Medications Discontinued Medications Generic Name Dose Route Start Last Admin Trade Name Freq PRN Reason Stop Dose Admin Acetaminophen 650 mg 10/09/21 00:46 Acetaminophen 325 Mg Tablet PO 11/08/21 00:45 Q4H PRN PRN PAIN AND/OR FEVER Al Hydrox/Mg Hydrox/Simethicone 30 ml 10/09/21 00:46 Mag Hydrox/Al Hydrox/Simeth 30 Ml Udcup PO 11/08/21 00:45 Q4H PRN PRN INDIGESTION Aspirin 324 mg 10/08/21 21:26 10/08/21 21:33 Aspirin 81 Mg Tab.Chew PO 10/08/21 21:27 Not Given STAT ONE Aspirin 325 mg 10/09/21 10:00 10/09/21 10:59 Aspirin 325 Mg Tablet.Ec PO 11/08/21 09:59 325 mg DAILY ALBA Administration Lisinopril 2.5 mg 10/09/21 10:00 10/09/21 11:01 Lisinopril 5 Mg Tablet PO 11/08/21 09:59 2.5 mg DAILY ALBA Administration Magnesium Hydroxide 30 - 60 ml 10/09/21 00:46 Magnesium Hydroxide 30 Ml Udcup PO 11/08/21 00:45 QDP PRN CONSTIPATION Metoprolol Succinate 25 mg 10/09/21 10:00 10/09/21 11:00 Metoprolol Succinate 25 Mg Xl Tab PO 11/08/21 09:59 25 mg DAILY ALBA Administration Nitroglycerin 1 gm 10/08/21 21:26 10/08/21 21:34 Nitroglycerin 1 Gm Packet TOP 10/08/21 21:27 1 gm STAT ONE Administration Nitroglycerin Confirm 10/08/21 21:33 Nitroglycerin 1 Gm Packet Administered 10/08/21 21:34 Dose 1 gm .ROUTE .STK-MED ONE Ondansetron HCl 4 mg 10/09/21 00:46 Ondansetron Hcl 4 Mg/2 Ml Vial IV 11/08/21 00:45 Q4H PRN PRN NAUSEA/VOMITING Senna/Docusate Sodium 2 udtab 10/09/21 00:46 Senna/Docusate Sodium 1 Udtab Tablet PO 11/08/21 00:45 BID PRN PRN CONSTIPATION Simvastatin 20 mg 10/09/21 22:00 Simvastatin 20 Mg Tablet PO 11/08/21 21:59 HS ALBA Intake & Output (Last 24 hours) 10/07/21 10/08/21 10/09/21 10/10/21 11:59 11:59 11:59 11:59 Intake Total 420 Balance 420 Weight 112.4 kg Laboratory Results (Last 24 hours) 10/09/21 10/09/21 10/09/21 07:29 04:20 04:20 WBC RBC Hgb Hct MCV MCH MCHC RDW Plt Count MPV Gran % Eos # (Auto) Absolute Lymphs (auto) Absolute Monos (auto) Lymphocytes % Monocytes % Eosinophils % Basophils % Absolute Granulocytes Basophils # Sodium Potassium Chloride Carbon Dioxide Anion Gap BUN Creatinine Estimated GFR Glucose Calcium Total Bilirubin AST ALT Alkaline Phosphatase Troponin I < 0.012 < 0.012 Serum Total Protein Albumin Triglycerides 138 Cholesterol 136 LDL Cholesterol 72 HDL Cholesterol 34 L Heart Disease Risk Ratio 4.0 Influenza Type A Ag Influenza Type B Ag RSV (PCR) SARS-CoV-2 (PCR) 10/09/21 10/08/21 10/08/21 01:25 23:18 22:00 WBC RBC Hgb Hct MCV MCH MCHC RDW Plt Count MPV Gran % Eos # (Auto) Absolute Lymphs (auto) Absolute Monos (auto) Lymphocytes % Monocytes % Eosinophils % Basophils % Absolute Granulocytes Basophils # Sodium Potassium Chloride Carbon Dioxide Anion Gap BUN Creatinine Estimated GFR Glucose Calcium Total Bilirubin AST ALT Alkaline Phosphatase Troponin I < 0.012 < 0.012 Serum Total Protein Albumin Triglycerides Cholesterol LDL Cholesterol HDL Cholesterol Heart Disease Risk Ratio Influenza Type A Ag NEGATIVE Influenza Type B Ag NEGATIVE RSV (PCR) NEGATIVE SARS-CoV-2 (PCR) NEGATIVE 10/08/21 10/08/21 10/08/21 19:20 19:15 19:03 WBC 11.0 H RBC 5.27 Hgb 16.1 Hct 48.3 MCV 91.7 MCH 30.6 MCHC 33.3 RDW 14.1 H Plt Count 230 MPV 10.1 Gran % 71.1 H Eos # (Auto) 0.14 Absolute Lymphs (auto) 2.17 Absolute Monos (auto) 0.84 Lymphocytes % 19.7 L Monocytes % 7.6 Eosinophils % 1.3 Basophils % 0.3 Absolute Granulocytes 7.85 H Basophils # 0.03 Sodium 139 Potassium 4.0 Chloride 104 Carbon Dioxide 23 Anion Gap 16.1 H BUN 15 Creatinine 1.18 Estimated GFR > 60.0 Glucose 105 Calcium 9.7 Total Bilirubin 0.70 AST 25 ALT 25 Alkaline Phosphatase 95 Troponin I < 0.012 Serum Total Protein 7.6 Albumin 4.5 Triglycerides Cholesterol LDL Cholesterol HDL Cholesterol Heart Disease Risk Ratio Influenza Type A Ag Influenza Type B Ag RSV (PCR) SARS-CoV-2 (PCR) Orders (Last 24 hours) Category Date Time Status Bedrest with BRP/BSC ROUTINE Activity 10/09/21 00:46 Completed Covered Buckle Assembler STAT Care 10/08/21 19:03 Completed Code Status Order ROUTINE Care 10/09/21 00:46 Completed EKG-ER Only STAT Care 10/08/21 19:03 Completed IV Care Q6H Care 10/09/21 00:46 Completed IV Insertion STAT Care 10/08/21 19:03 Completed Implement Chest Pain Pathway ROUTINE Care 10/09/21 00:[address] in Observation ROUTINE Care 10/09/21 00:46 Completed Pulse Oximetry (ED) STAT Care 10/08/21 19:03 Completed Isabella Salazar ROUTINE Care 10/09/21 00:46 Completed Telemetry q6h Care 10/09/21 00:46 Completed Weight,Daily 0600 Care 10/09/21 00:46 Completed Consistent Carbohydrate Diet 1800 Calorie Diet 10/09/21 Breakfast Completed Discharge Routine Discharge 10/09/21 Ordered CHEST 1 VIEW (PORTABLE) Stat Exams 10/08/21 19:03 Completed ECHO W/2D AND DOPPLER [US] Urgent Exams 10/09/21 Taken CBC W DIFF Stat Lab 10/08/21 19:20 Completed CMP Stat Lab 10/08/21 19:03 Completed LIPID PROFILE AM.LAB Lab 10/09/21 04:20 Completed TROPONIN Q3H Lab 10/08/21 19:15 Completed TROPONIN Q3H Lab 10/08/21 22:00 Completed TROPONIN Q3H Lab 10/09/21 01:25 Completed TROPONIN Q3H Lab 10/09/21 04:20 Completed TROPONIN Q3H Lab 10/09/21 07:29 Completed Acetaminophen 325 mg [Tylenol 325 mg] Med 10/09/21 00:46 Discontinued 650 mg PO Q4H PRN PRN Aspirin 81 gm Chew [Baby Aspirin 81 mg Chew] Med 10/08/21 21:26 Discontinued 324 mg PO STAT ONE Aspirin EC 325 mg [Ecotrin 325 MG] Med 10/09/21 10:00 Discontinued 325 mg PO DAILY Lisinopril 5 mg [Zestril 5 MG] Med 10/09/21 10:00 Discontinued 2.5 mg PO DAILY Mag Hydrox/Al Hydrox/Simeth [Maalox Es 30 ml Unit Med 10/09/21 00:46 Disco ntinued Dose] 30 ml PO Q4H PRN PRN Magnesium Hydroxide 30 ml [Milk of Magnesia 30 ml Med 10/09/21 00:46 Discontinued ] 30 - 60 ml PO QDP PRN Metoprolol Succinate 25 mg Xl* [Toprol-Xl 25MG Tablets* Med 10/09/21 10:00 Discontinued ] 25 mg PO DAILY Nitroglycerin 2 %Ointment [Nitro-Bid 2% Ud Packets Med 10/08/21 21:33 Discontinued *] 1 gm .ROUTE .STK-MED ONE Nitroglycerin 2 %Ointment [Nitro-Bid 2% Ud Packets Med 10/08/21 21:26 Discontinued *] 1 gm TOP STAT ONE Ondansetron HCl 4 mg/2 ml [Zofran 4 MG/2 ML VIAL] Med 10/09/21 00:46 Discontinued 4 mg IV Q4H PRN PRN Senna/Docusate Sodium Tab [Senokot-S Tablet] Med 10/09/21 00:46 Discontinued 2 udtab PO BID PRN PRN Simvastatin 20Mg [Zocor 20Mg] Med 10/09/21 22:00 Discontinued 20 mg PO HS EKG DAILY RT 10/11/21 05:00 Completed EKG DAILY RT 10/12/21 05:00 Completed EKG Q8HX2,QAMX3,PRN RT 10/09/21 00:46 Completed EKG ROUTINE RT 10/09/21 05:00 Completed EKG ROUTINE RT 10/10/21 05:00 Completed Pulse Oximetry .continuos RT 10/09/21 01:33 Completed Transfer Order Routine Transfer 10/09/21 Completed - Vitals & Intake/Output Vital Signs: Vital Signs Temperature 96.2 F 10/09/21 07:55 Pulse Rate 69 10/09/21 07:55 Respiratory Rate 17 10/09/21 07:55 Blood Pressure 107/68 10/09/21 07:55 O2 Sat by Pulse Oximetry 94 L 10/09/21 07:55 Intake & Output: Intake & Output 10/07/21 10/08/21 10/09/21 10/10/21 11:59 11:59 11:59 11:59 Intake Total 420 Balance 420 Weight 112.4 kg - Lab Result Diagrams: 10/08/21 19:20 10/08/21 19:03 Lab Results-Last 24 Hrs: Lab Results-Last 24 Hours 10/08/21 10/08/21 10/08/21 Range/Units 19:03 19:15 19:20 WBC 11.0 H (4.0-10.5) K/mm3 RBC 5.27 (4.1-5.6) M/mm3 Hgb 16.1 (12.5-18.0) gm/dl Hct 48.3 (42-50) % MCV 91.7 (78-100) fl MCH 30.6 (26-32) pg MCHC 33.3 (32-36) g/dl RDW 14.1 H (11.5-14.0) % Plt Count 230 (150-450) K/mm3 MPV 10.1 (7.5-11.0) fl Gran % 71.1 H (36.0-66.0) % Eos # (Auto) 0.14 (0-0.5) Absolute Lymphs (auto) 2.17 (1.0-4.6) Absolute Monos (auto) 0.84 (0.0-1.3) Lymphocytes % 19.7 L (24.0-44.0) % Monocytes % 7.6 (0.0-12.0) % Eosinophils % 1.3 (0.00-5.0) % Basophils % 0.3 (0.0-0.4) % Absolute Granulocytes 7.85 H (1.4-6.9) Basophils # 0.03 (0-0.4) Sodium 139 (137-145) mmol/L Potassium 4.0 (3.5-5.1) mmol/L Chloride 104 (98-107) mmol/L Carbon Dioxide 23 (22-30) mmol/L Anion Gap 16.1 H (5-15) MEQ/L BUN 15 (9-20) mg/dL Creatinine 1.18 (0.66-1.25) mg/dL Estimated GFR > 60.0 ML/MIN Glucose 105 (74-106) mg/dL Calcium 9.7 (8.4-10.2) mg/dL Total Bilirubin 0.70 (0.2-1.3) mg/dL AST 25 (17-59) U/L ALT 25 (0-50) U/L Alkaline Phosphatase 95 (38-126) U/L Troponin I < 0.012 (0.000-0.034) ng/mL Serum Total Protein 7.6 (6.3-8.2) g/dL Albumin 4.5 (3.5-5.0) g/dL Triglycerides (30-150) mg/dL Cholesterol (50-200) mg/dL LDL Cholesterol (30-100) mg/dL HDL Cholesterol (40-60) mg/dL Heart Disease Risk Ratio Influenza Type A Ag (NEGATIVE) Influenza Type B Ag (NEGATIVE) RSV (PCR) (Negative) SARS-CoV-2 (PCR) (NEGATIVE) 10/08/21 10/08/21 10/09/21 Range/Units 22:00 23:18 01:25 WBC (4.0-10.5) K/mm3 RBC (4.1-5.6) M/mm3 Hgb (12.5-18.0) gm/dl Hct (42-50) % MCV (78-100) fl MCH (26-32) pg MCHC (32-36) g/dl RDW (11.5-14.0) % Plt Count (150-450) K/mm3 MPV (7.5-11.0) fl Gran % (36.0-66.0) % Eos # (Auto) (0-0.5) Absolute Lymphs (auto) (1.0-4.6) Absolute Monos (auto) (0.0-1.3) Lymphocytes % (24.0-44.0) % Monocytes % (0.0-12.0) % Eosinophils % (0.00-5.0) % Basophils % (0.0-0.4) % Absolute Granulocytes (1.4-6.9) Basophils # (0-0.4) Sodium (137-145) mmol/L Potassium (3.5-5.1) mmol/L Chloride (98-107) mmol/L Carbon Dioxide (22-30) mmol/L Anion Gap (5-15) MEQ/L BUN (9-20) mg/dL Creatinine (0.66-1.25) mg/dL Estimated GFR ML/MIN Glucose (74-106) mg/dL Calcium (8.4-10.2) mg/dL Total Bilirubin (0.2-1.3) mg/dL AST (17-59) U/L ALT (0-50) U/L Alkaline Phosphatase (38-126) U/L Troponin I < 0.012 < 0.012 (0.000-0.034) ng/mL Serum Total Protein (6.3-8.2) g/dL Albumin (3.5-5.0) g/dL Triglycerides (30-150) mg/dL Cholesterol (50-200) mg/dL LDL Cholesterol (30-100) mg/dL HDL Cholesterol (40-60) mg/dL Heart Disease Risk Ratio Influenza Type A Ag NEGATIVE (NEGATIVE) Influenza Type B Ag NEGATIVE (NEGATIVE) RSV (PCR) NEGATIVE (Negative) SARS-CoV-2 (PCR) NEGATIVE (NEGATIVE) 10/09/21 10/09/21 10/09/21 Range/Units 04:20 04:20 07:29 WBC (4.0-10.5) K/mm3 RBC (4.1-5.6) M/mm3 Hgb (12.5-18.0) gm/dl Hct (42-50) % MCV (78-100) fl MCH (26-32) pg MCHC (32-36) g/dl RDW (11.5-14.0) % Plt Count (150-450) K/mm3 MPV (7.5-11.0) fl Gran % (36.0-66.0) % Eos # (Auto) (0-0.5) Absolute Lymphs (auto) (1.0-4.6) Absolute Monos (auto) (0.0-1.3) Lymphocytes % (24.0-44.0) % Monocytes % (0.0-12.0) % Eosinophils % (0.00-5.0) % Basophils % (0.0-0.4) % Absolute Granulocytes (1.4-6.9) Basophils # (0-0.4) Sodium (137-145) mmol/L Potassium (3.5-5.1) mmol/L Chloride (98-107) mmol/L Carbon Dioxide (22-30) mmol/L Anion Gap (5-15) MEQ/L BUN (9-20) mg/dL Creatinine (0.66-1.25) mg/dL Estimated GFR ML/MIN Glucose (74-106) mg/dL Calcium (8.4-10.2) mg/dL Total Bilirubin (0.2-1.3) mg/dL AST (17-59) U/L ALT (0-50) U/L Alkaline Phosphatase (38-126) U/L Troponin I < 0.012 < 0.012 (0.000-0.034) ng/mL Serum Total Protein (6.3-8.2) g/dL Albumin (3.5-5.0) g/dL Triglycerides 138 (30-150) mg/dL Cholesterol 136 (50-200) mg/dL LDL Cholesterol 72 (30-100) mg/dL HDL Cholesterol 34 L (40-60) mg/dL Heart Disease Risk Ratio 4.0 Influenza Type A Ag (NEGATIVE) Influenza Type B Ag (NEGATIVE) RSV (PCR) (Negative) SARS-CoV-2 (PCR) (NEGATIVE) - Radiology Exams Ordered Rad Exams-Entire Visit: Radiology Procedures Category Date Time Status CHEST 1 VIEW (PORTABLE) Stat Exams 10/08/21 19:03 Completed ECHO W/2D AND DOPPLER [US] Urgent Exams 10/09/21 Taken - Procedures and Test Procedures and Tests throughout Hospitalization: Therapy Orders & Screens 10/09/21 00:46 EKG Q8HX2,QAMX3,PRN Comment: 10/09/21 05:00 EKG ROUTINE Comment: Diagnosis: ACS 10/10/21 05:00 EKG ROUTINE Comment: Diagnosis: ACS 10/11/21 05:00 EKG DAILY Comment: Diagnosis: ACS 10/12/21 05:00 EKG DAILY Comment: Diagnosis: ACS - Discharge Discharge Date: 10/09/21 Disposition: Home, Self-Care Condition: Stable Prescriptions: Continue lisinopriL [Zestril] 2.5 mg PO DAILY Metoprolol Succinate 25 mg PO DAILY Aspirin EC 325 mg [Ecotrin 325 MG] 325 mg PO DAILY Atorvastatin Calcium [Lipitor] 20 mg PO HS Instructions: Chest Pain (DC) Follow up with: GENARO FAULKNER MD [Primary Care Provider] - 10/17/21 10:30 am
[2021-10-09] MEDS ORDERED: NON-FORMULARY ITEM (Atorvastatin Calcium [Lipitor] 20 MG Tablet) PO SCH (22:00)
[2021-10-09] MEDS ORDERED: ZOCOR 20MG PO SCH (22:00)
== END 2021-10-09 11:36 | disposition home or self-care (01) ==
LOC: ED 18:50 → UNDOADMOB 10-09 00:38 → ICU 10-09 00:38 → UNDODISOB 10-09 11:36
PROVIDERS: ADMIT General Practice; ATTEND General Practice
DX: R07.9 Chest pain, unspecified (principal); I24.9 Acute ischemic heart disease, unspecified; I10 Essential (primary) hypertension; E78.5 Hyperlipidemia, unspecified; I25.2 Old myocardial infarction; Z79.899 Other long term (current) drug therapy; Z72.0 Tobacco use; Z20.828 Contact with and (suspected) exposure to other viral communicable diseases
CPT/HCPCS: 0241U; 36000; 36415; 71045; 80053; 80061; 83721; 84484; 85025; 93005; 93041; 93268; 93306; 94760; 94762; 99284; G0378; A9270-GY